=== PATIENT | male | born 1965 | race Caucasian/White ===

== ENCOUNTER 2020-11-23 11:00 | Emergency (ER) | payer SELFPAY ==
[2020-11-23] MEDS ORDERED: Sodium Chloride 0.9% 10 ML Syringe FLUSH PRN (11:53)
[2020-11-23] MEDS ORDERED: Sodium Chloride 0.9% 2.5 ML Syringe FLUSH PRN (11:53)
--- NOTE | 2020-11-23 11:54 | PCM.EKG ---
#1 Interpretation EKG Date: 11/23/20 Time: 11:45 Rhythm: NSR Rate (Beats/Min): 61 ST-T: Normal
[2020-11-23 12:52] LABS: BLOOD UREA NITROGEN,BUN 12 mg/dL (7.0-18.0); CARBON DIOXIDE,CO2 24.8 mmol/L (21.0-32.0); CHLORIDE,CL 104 mmol/L (98-107); GLUCOSE RANDOM 149 mg/dL (74-106); LIPASE 58 U/L (73-393); POTASSIUM,K 3.7 mmol/L (3.5-5.1); SODIUM,NA 138 mmol/L (136-148)
[2020-11-23] MEDS ORDERED: Aspirin 81 MG Tab.Chew PO ONE (13:01)
[2020-11-23] MEDS ORDERED: Heparin Sodium 5,000 Units/ML Vial IVPUSH ONE (13:04)
[2020-11-23] MEDS ORDERED: Ondansetron 4 MG/2 ML SDV IVPUSH ONE ×2 (13:05→13:29)
[2020-11-23] MEDS ORDERED: Heparin Sodium/0.45% NaCl 500 ML IV SCH ×2 (13:15)
--- NOTE | 2020-11-23 13:15 | PCM.SN.2 ---
- Free Text/Narrative Note: And is a 55-year-old male presents today for nausea vomiting some chest pain. Patient EKG was negative for STEMI. Patient tropes return are positive. I saw patient order heparin drip and aspirin [facility] call [facility] had patient separate patient is being transferred over now.
[2020-11-23] MEDS ORDERED: Heparin Sodium/0.45% NaCl 500 ML ONE (13:22)
--- NOTE | 2020-11-23 13:37 | EDM.PDOC ---
ED HPI GENERAL MEDICAL PROBLEM - General Chief Complaint: Gastrointestinal Problem Stated Complaint: NOT FEELING WELL Time Seen by Provider: 11/23/20 11:15 Source of Information: Reports: Patient History Limitations: Reports: No Limitations - History of Present Illness INITIAL COMMENTS - FREE TEXT/NARRATIVE: HISTORY AND PHYSICAL: History of present illness: Patient is a 55-year-old male who presents to the ED today with concern of nausea and vomiting that started early in the morning around 6. Patient states that he has felt nauseous and has been vomiting and has not been able to drink any water without vomiting. Patient states he feels like he is dehydrated. Patient was initially triaged in the waiting room and states that while waiting to come back, he began developing midsternal chest pain that he describes as a pressure sensation. Patient states his chest pain is resolved now on my interview. Patient states he has a history of triple bypass 11 years ago and had this done at [facility] in [place]. Patient states since then, he has not had any issues with his bypass and states that his chest pain today does not feel like his prior heart attack. Patient states he has had his gallbladder removed otherwise denies any other health history. Patient states he has not taken anything for his symptoms. Patient states his last episode of vomiting was just before coming to the emergency room. Patient denies any other symptoms or concerns. Patient denies fever, chills, shortness of breath, or cough. Denies headache, neck stiff ness, change in vision, syncope, or near syncope. Denies abdominal pain, diarrhea, constipation, or dysuria. Has not noted any blood in urine or stool. Review of systems: As per history of present illness and below otherwise all systems reviewed and negative. Past medical history: As per history of present illness and as reviewed below otherwise noncontributory. Surgical history: As per history of present illness and as reviewed below otherwise noncontributory. Social history: See social history for further information Family history: As per history of present illness and as reviewed below otherwise noncontributory. Physical exam: General: Patient is alert, oriented, and in no acute distress. Patient laying comfortably on exam table. Vitals stable and reviewed by me. HEENT: Atraumatic, normocephalic, pupils equal and reactive bilaterally, negative for conjunctival pallor or scleral icterus, mucous membranes moist, TMs normal bilaterally, throat clear, neck supple, nontender, trachea midline. No drooling or trismus noted. No meningeal signs. No hot potato voice noted. Lungs: Clear to auscultation, breath sounds equal bilaterally, chest nontender. Heart: S1S2, regular rate and rhythm without overt murmur Abdomen: Soft, nondistended, nontender. Negative for masses or hepatosplenomegaly. Negative for costovertebral tenderness. Pelvis: Stable nontender. Genitourinary: Deferred. Rectal: Deferred. Skin: Intact, warm, dry. No lesions or rashes noted. Extremities: Atraumatic, negative for cords or calf pain. Neurovascular unremarkable. Neuro: Awake, alert, oriented. Cranial nerves II through XII unremarkable. Cerebellum unremarkable. Motor and sensory unremarkable throughout. Exam nonfocal. Notes: On initial exam, patient is well-appearing and vitally stable. He is not having active vomiting but does express nausea. He did have an episode of chest pain while awaiting to be brought back into the emergency room, but was initially triaged as vomiting by nursing staff and was out in the waiting room as he did not have chest pain upon arrival. Patient is currently chest pain-free on my exam. Does have a history of coronary artery disease status post triple bypass [address] Payan has received critical value of elevated troponin and he has ordered heparin gtt/bolus. Dr. aPyan has spoke to accepting provider at [facility], Dr. Salvador, who accepting of transfer. Patient does have 1 episode of vomiting in the ED. EMS is delayed 6+ hours with unknown time to transfer patient. Flight arranged. Flight at bedside and patient remains chest pain free and vitally stable throughout stay in ED. Voices understanding and is agreeable to plan of care. Denies any further questions or concerns at this time. Diagnostics: EKG x 2, CBC, CMP, Lipase, CXR, Trop, PT/INR, PTT Therapeutics: ASA, Heparin gtt/bolus, Zofran Impression: NSTEMI Plan: Transfer to [facility] to Dr. Salvador via flight Definitive disposition and diagnosis as appropriate pending reevaluation and review of above. chest Pain Score (Numeric/FACES): 10 - Related Data Allergies Allergy/AdvReac Type Severity Reaction Status Date / Time No Known Allergies Allergy Verified 11/23/20 11:43 Home Meds: Home Meds . [No Known Home Meds] 11/23/20 [History] Past Medical History - Past Surgical History Cardiovascular Surgical History: Reports: Coronary Artery Bypass Other Cardiovascular Surgeries/Procedures: Triple Bypass 10 years ago GI Surgical History: Reports: Cholecystectomy Social & Family History - Family History Family Medical History: No Pertinent Family History - Tobacco Use Tobacco Use Status *Q: Former Tobacco User Used Tobacco, but Quit: Yes Month/Year Tobacco Last Used: 30 years ago - Recreational Drug Use Recreational Drug Use: No ED ROS GENERAL - Review of Systems Review Of Systems: Comprehensive ROS is negative, except as noted in HPI. ED EXAM, GENERAL - Physical Exam Exam: See Below (see dictation) Course - Vital Signs Last Recorded V/S: Last Vital Signs Temp 97.1 F 11/23/20 11:39 Pulse 58 L 11/23/20 11:39 Resp 16 11/23/20 11:39 BP 124/79 11/23/20 11:39 Pulse Ox 98 11/23/20 11:39 - Orders/Labs/Meds Orders: Active Orders 24 hr Category Date Time Status Cardiac Monitoring [RC] . DIRECTED Care 11/23/20 11:53 Active Cardiac Monitoring [RC] STAT Care 11/23/20 13:01 Active Communication Order [RC] PER UNIT ROUTINE Care 11/23/20 13:01 Active Communication Order [RC] PER UNIT ROUTINE Care 11/23/20 13:01 Active EKG Documentation Completion [RC] STAT Care 11/23/20 11:53 Active EKG Documentation Completion [RC] STAT Care 11/23/20 13:42 Active Oxygen Therapy [RC] ASDIRECTED Care 11/23/20 13:01 Active UA RFX MANUEL AND CULT IF INDIC [URIN] Stat Lab 11/23/20 11:53 Ordered Heparin Sodium/0.45% NaCl [Heparin 25,000 Units in 1/2 Med 11/23/20 13:15 Active NS 500 ML] 500 ml IV TITRATE Heparin Sodium/0.45% NaCl [Heparin 25,000 Units in 1/2 Med 11/23/20 13:15 Active NS 500 ML] 500 ml IV TITRATE Sodium Chloride 0.9% [Saline Flush] Med 11/23/20 11:53 Active 10 ml FLUSH ASDIRECTED PRN Sodium Chloride 0.9% [Saline Flush] Med 11/23/20 11:53 Active 2.5 ml FLUSH ASDIRECTED PRN Saline Lock Insert [OM.PC] Stat Oth 11/23/20 11:53 Ordered Medication Orders Heparin Sodium/Sodium Chloride (Heparin 25,000 Units In 1/2 Ns 500 Ml) 500 mls @ 19.595 mls/hr IV TITRATE NEREYDA; Protocol Heparin Sodium/Sodium Chloride (Heparin 25,000 Units In 1/2 Ns 500 Ml) 500 mls @ 19.595 mls/hr IV TITRATE NEREYDA; Protocol Last Admin: 11/23/20 13:37 Dose: 12 units/kg/hr, 19.595 mls/hr Documented by: JUAN Cosigned by: TAISHA Sodium Chloride (Sodium Chloride 0.9% 10 Ml Syringe) 10 ml FLUSH ASDIRECTED PRN PRN Reason: Keep Vein Open Last Admin: 11/23/20 13:42 Dose: 10 ml Documented by: JUAN Sodium Chloride (Sodium Chloride 0.9% 2.5 Ml Syringe) 2.5 ml FLUSH ASDIRECTED PRN PRN Reason: Keep Vein Open Last Admin: 11/23/20 13:42 Dose: 2.5 ml Documented by: JUAN Labs: Laboratory Tests 11/23/20 11/23/20 11/23/20 Range/Units 11:55 11:55 13:20 WBC 12.56 H (4.0-11.0) K/uL RBC 5.25 (4.50-5.90) M/uL Hgb 15.8 (13.0-17.0) g/dL Hct 45.8 (38.0-50.0) % MCV 87.2 (80.0-98.0) fL MCH 30.1 (27.0-32.0) pg MCHC 34.5 (31.0-37.0) g/dL RDW Std Deviation 41.4 (28.0-62.0) fl RDW Coeff of Lavinia 13 (11.0-15.0) % Plt Count 225 (150-400) K/uL MPV 11.10 (7.40-12.00) fL Neut % (Auto) 89.1 H (48.0-80.0) % Lymph % (Auto) 8.3 L (16.0-40.0) % [place] % (Auto) 2.3 (0.0-15.0) % Eos % (Auto) 0.1 (0.0-7.0) % Baso % (Auto) 0.2 (0.0-1.5) % Neut # (Auto) 11.2 H (1.4-5.7) K/uL Lymph # (Auto) 1.0 (0.6-2.4) K/uL [place] # (Auto) 0.3 (0.0-0.8) K/uL Eos # (Auto) 0.0 (0.0-0.7) K/uL Baso # (Auto) 0.0 (0.0-0.1) K/uL Nucleated RBC % 0.0 /100WBC Nucleated RBCs # 0 K/uL INR 1.05 APTT 25.4 (18.6-31.3) SEC Sodium 138 (136-148) mmol/L Potassium 3.7 (3.5-5.1) mmol/L Chloride 104 (98-107) mmol/L Carbon Dioxide 24.8 (21.0-32.0) mmol/L BUN 12 (7.0-18.0) mg/dL Creatinine 1.1 (0.8-1.3) mg/dL Est Cr Clr Drug Dosing 67.67 mL/min Estimated GFR (MDRD) > 60.0 ml/min Glucose 149 H (74-106) mg/dL Calcium 8.9 (8.5-10.1) mg/dL Magnesium 2.1 (1.8-2.4) mg/dL Total Bilirubin 0.5 (0.2-1.0) mg/dL AST 52 H (15-37) IU/L ALT 34 (14-63) IU/L Alkaline Phosphatase 73 (46-116) U/L Troponin I 2.866 H* (0.000-0.056) ng/mL Total Protein 7.7 (6.4-8.2) g/dL Albumin 3.9 (3.4-5.0) g/dL Globulin 3.8 (2.6-4.0) g/dL Albumin/Globulin Ratio 1.0 (0.9-1.6) Lipase 58 L (73-393) U/L Meds: Medications Generic Name Dose Route Start Last Admin Trade Name Freq PRN Reason Stop Dose Admin Heparin Sodium/Sodium Chloride 500 mls @ 19.595 mls/hr 11/23/20 13:15 Heparin 25,000 Units In 1/2 Ns 500 Ml IV TITRATE NEREYDA Protocol 12 UNITS/KG/HR Heparin Sodium/Sodium Chloride 500 mls @ 19.595 mls/hr 11/23/20 13:15 11/23/20 13:37 Heparin 25,000 Units In 1/2 Ns 500 Ml IV 12 units/kg/hr TITRATE NEREYDA 19.595 mls/hr Administration Protocol 12 UNITS/KG/HR Sodium Chloride 10 ml 11/23/20 11:53 11/23/20 13:42 Sodium Chloride 0.9% 10 Ml Syringe FLUSH 10 ml ASDIRECTED PRN Administration Keep Vein Open Sodium Chloride 2.5 ml 11/23/20 11:53 11/23/20 13:42 Sodium Chloride 0.9% 2.5 Ml Syringe FLUSH 2.5 ml ASDIRECTED PRN Administration Keep Vein Open Discontinued Medications Generic Name Dose Route Start Last Admin Trade Name Freq PRN Reason Stop Dose Admin Aspirin 324 mg 11/23/20 13:01 11/23/20 13:42 Aspirin 81 Mg Tab.Chew PO 11/23/20 13:02 324 mg ONETIME ONE Administration Heparin Sodium (Porcine) 4,000 units 11/23/20 13:04 11/23/20 13:32 Heparin Sodium 5,000 Units/Ml Vial IVPUSH 11/23/20 13:05 4,000 units .BOLUS ONE Administration Heparin Sodium/Sodium Chloride Confirm 11/23/20 13:22 11/23/20 13:43 Heparin 25,000 Units In 1/2 Ns 500 Ml Administered 11/23/20 13:23 Not Given Dose 500 mls @ as directed .ROUTE .STK-MED ONE Ondansetron HCl 4 mg 11/23/20 13:05 11/23/20 13:31 Ondansetron 4 Mg/2 Ml Sdv IVPUSH 11/23/20 13:06 4 mg ONETIME ONE Administration Ondansetron HCl 4 mg 11/23/20 13:29 Ondansetron 4 Mg/2 Ml Sdv IVPUSH 11/23/20 13:30 ONETIME ONE Departure - Departure Time of Disposition: 13:37 Disposition: DC/Tfer to Acute Hospital 02 Clinical Impression: NSTEMI (non-ST elevated myocardial infarction) - Discharge Information Referrals: PCP,None [Primary Care Provider] - Forms: ED Department Discharge Sepsis Event Note (ED) - Evaluation Sepsis Screening Result: No Definite Risk - Focused Exam Vital Signs: Vital Signs Temp Pulse Resp BP Pulse Ox 11/23/20 11:39 97.1 F 58 L 16 124/79 98 - My Orders Last 24 Hours: My Active Orders 11/23/20 11:53 Cardiac Monitoring [RC] . DIRECTED EKG Documentation Completion [RC] STAT UA RFX MANUEL AND CULT IF INDIC [URIN] Stat Sodium Chloride 0.9% [Saline Flush] 10 ml FLUSH ASDIRECTED PRN Sodium Chloride 0.9% [Saline Flush] 2.5 ml FLUSH ASDIRECTED PRN Saline Lock Insert [OM.PC] Stat 11/23/20 13:42 EKG Documentation Completion [RC] STAT - Assessment/Plan Last 24 Hours: My Active Orders 11/23/20 11:53 Cardiac Monitoring [RC] . DIRECTED EKG Documentation Completion [RC] STAT UA RFX MANUEL AND CULT IF INDIC [URIN] Stat Sodium Chloride 0.9% [Saline Flush] 10 ml FLUSH ASDIRECTED PRN Sodium Chloride 0.9% [Saline Flush] 2.5 ml FLUSH ASDIRECTED PRN Saline Lock Insert [OM.PC] Stat 11/23/20 13:42 EKG Documentation Completion [RC] STAT
--- NOTE | 2020-11-23 13:45 | PCM.EKG ---
#1 Interpretation EKG Date: 11/23/20 Time: 13:45 Rhythm: NSR Rate (Beats/Min): 62 ST-T: Normal
--- NOTE | 2020-11-23 13:55 | CR ---
Indication: Chest pain Technique: Chest 1 view Comparison: None Findings/Impression: Status post median sternotomy. Cardiomediastinal silhouette within normal limits. Normal pulmonary vasculature. Lungs and pleural space are clear. No acute osseous abnormality. Dictated by Cece Machado MD @ Nov 23 2020 1:53PM Signed by Dr. Cece Machado @ Nov 23 2020 1:54PM
== END 2020-11-24 14:40 ==
LOC: MW.ED 11:00
DX: I21.4 Non-ST elevation (NSTEMI) myocardial infarction (principal); Z87.891 Personal history of nicotine dependence; Z95.1 Presence of aortocoronary bypass graft
CPT/HCPCS: 36415; 71045; 80053; 83690; 83735; 84484; 85025; 85610; 85730; 93005; 96365; 96375; 99285; A9270; J1644; J2405; 93010; 99284

== ENCOUNTER 2023-06-19 11:27 | Emergency (ER) | payer SELFPAY ==
[2023-06-19] MEDS ORDERED: Sodium Chloride 0.9% 10 ML Syringe FLUSH PRN (11:57)
[2023-06-19] MEDS ORDERED: Sodium Chloride 0.9% 2.5 ML Syringe FLUSH PRN (11:57)
[2023-06-19 12:08] LABS: BASOPHILS ABSOLUTE AUTO 0.06 K/uL (0.00-0.20); BASOPHILS PERCENT AUTO 0.8 % (0.0-1.0); EOSINOPHILS PERCENT AUTO 1.3 % (0.0-6.0); IMMATURE GRAN ABSOLUTE AUTO 0.01 K/uL (0.00-0.05); IMMATURE GRAN PERCENT AUTO 0.1 % (0.0-0.4); LYMPHOCYTES ABSOLUTE AUTO 2.98 K/uL (1.00-4.80); LYMPHOCYTES PERCENT AUTO 38.2 % (24.0-44.0); MEAN CORPUSCULAR HEMOGLOBIN 30.2 pg (28.0-32.0); MEAN CORPUSCULAR HGB CONC 35.4 g/dL (32.0-36.0); MEAN CORPUSCULAR VOLUME 85.3 fL (83.0-99.0); MEAN PLATELET VOLUME 10.5 fL (9.4-12.4); MONOCYTES ABSOLUTE AUTO 0.57 K/uL (0.00-0.80); MONOCYTES PERCENT AUTO 7.3 % (0.0-8.0); NEUTROPHILS ABSOLUTE AUTO 4.08 K/uL (1.80-7.70); NEUTROPHILS PERCENT AUTO 52.3 % (41.0-71.0); PLATELET COUNT,PLT 227 K/uL (150-400); RED BLOOD CELL COUNT 5.63 M/uL (4.52-5.90)
[2023-06-19 12:26] LABS: ALBUMIN 4.1 g/dL (3.4-5.0); BILIRUBIN TOTAL 0.7 mg/dL (0.2-1.0); CALCIUM 9.5 mg/dL (8.5-10.1); CARBON DIOXIDE,CO2 25.4 mmol/L (21.0-32.0); CREATININE 1.3 mg/dL (0.8-1.3); EST CRCL DRUG DOSING (CG) 55.89 mL/min; POTASSIUM,K 4.1 mmol/L (3.5-5.1); PROTEIN TOTAL,TP 8.2 g/dL (6.4-8.2)
== END 2023-06-19 15:35 | disposition left against medical advice (07) ==
LOC: MW.ED 11:27
DX: M25.512 Pain in left shoulder (principal); R07.89 Other chest pain; E78.00 Pure hypercholesterolemia, unspecified; I10 Essential (primary) hypertension; Z79.82 Long term (current) use of aspirin; Z79.899 Other long term (current) drug therapy
CPT/HCPCS: 36415; 71045; 73030; 80053; 84484; 85025; 93005; 99285; J3490; 93010; 99282